=== PATIENT | female | born 1995 | race Caucasian/White ===

== ENCOUNTER 2016-07-12 22:41 | Inpatient (IN) | payer OTHER ==
[2016-07-12] MEDS ORDERED: Penicillin G Potassium IV* 5,000,000 UNITS in NS 0.9% 100 ML* 100 ML IVPB ONE (23:00)
[2016-07-12] MEDS ORDERED: Ibuprofen TAB* 600 MG ONE (23:24)
[2016-07-13] MEDS ORDERED: Acetaminophen TAB* 325 MG PO PRN (00:04)
[2016-07-13] MEDS ORDERED: Dibucaine 1% 28.35 GM TUBE PR PRN (00:04)
[2016-07-13] MEDS ORDERED: Witch Hazel PAD* JAR TOPICAL PRN (00:04)
[2016-07-13] MEDS ORDERED: Ibuprofen TAB* 600 MG PO PRN (00:04)
[2016-07-13] MEDS ORDERED: Penicillin G Potassium IV* 2,500,000 UNITS in NS 0.9% 100 ML* 100 ML IVPB SCH (03:30)
[2016-07-13] MEDS ORDERED: Lidocaine 1% INJ* 10 MG/ML 30 ML SDV ONE (04:08)
[2016-07-13] MEDS: Docusate CAP* 100 MG PO SCH ×3 (09:05→20:51)
[2016-07-14 07:15] LABS: Hematocrit 36 % (35-47); Mean Corpuscular HGB Conc 33 g/dl (31-36); Mean Corpuscular Hemoglobin 27 pg (27-31); Mean Corpuscular Volume 81 fL (80-97); Mean Platelet Volume 9 um3 (7.4-10.4); Red Blood Count 4.46 10^6/ul (4.0-5.4); Red Cell Distribution Width 14 % (10.5-15); White Blood Count 12.8 10^3/ul (3.5-10.8)
[2016-07-14] MEDS: Docusate CAP* 100 MG PO SCH ×3 (08:15→21:28)
[2016-07-14] MEDS: Ferrous Gluconate TAB* 324 MG TAB PO SCH ×2 (08:16→21:28)
[2016-07-15 07:52] VITALS: BP 104/76
[2016-07-15] MEDS: Docusate CAP* 100 MG PO SCH (09:04)
[2016-07-15] MEDS: Ferrous Gluconate TAB* 324 MG TAB PO SCH (09:05)
== END 2016-07-15 10:20 | disposition home or self-care (01) | DRG 560 ==
LOC: MCHOBOUT 22:41 → MCHOB 22:56
PROVIDERS: ADMIT Nurse Practitioner; ATTEND Nurse Practitioner
PROC: 10E0XZZ Delivery of Products of Conception, External Approach (ICD-10-PCS; principal; 2016-07-12)
PROC: 4A1HXCZ Monitoring of Products of Conception, Cardiac Rate, External Approach (ICD-10-PCS; 2016-07-12)
DX: O99.824 Streptococcus B carrier state complicating childbirth (principal); O62.3 Precipitate labor; Z3A.39 39 weeks gestation of pregnancy; Z37.0 Single live birth
CPT/HCPCS: 36415; 85025; A9270-GY; J2540

== ENCOUNTER 2018-02-23 07:57 | Inpatient (IN) | payer OTHER ==
--- NOTE | 2018-02-23 08:32 | HP ---
General Information - General Information Maternal Age: 22 Grav: 3 Para: 2 SAB: 0 IEA: 0 Estimated Due Date: 03/02/18 Determined By: LMP Maternal Blood Type and Rh: A Positive - Results this Serology/RPR Result: Non-Reactive Rubella Result: Immune HBsAg Result: Negative HIV Result: Negative GBS Culture Result: Negative Past Medical History Delivery History: Hx Uncomplicated Vaginal Delivery Pertinent Past Medical History: Non-Contributory Past Surgical History Comment: Tonsillectomy with Adenoidectomy Pertinent Family History: See Records Family History Comment: Mother with cervical Ca Brother with congenital heart defect (VSD, narrowing of aorta) - Antepartal Records Antepartal Records: Reviewed, Uncomplicated Review of Systems Constitutional: Comfortable CV Complaint: No Respiratory: Shortness of Breath: No Gastrointestinal: Nausea Genitourinary: No Leaking Fluid Musculoskeletal: Back Pain Neurological: Headache Movement: Normal Exam Allergies/Adverse Reactions: Allergies No Known Allergies Allergy (Verified 06/25/16 04:33) - Measurements Height: 5 ft 7 in Weight: 183 lb Weight in lbs: [phone] Body Mass Index (BMI): 28.6 Pre- Weight: 168 lb Weight Gained This : 15 lbs and 0 ozs - Exam Breast: - - soft, no masses Extremities: No Edema Heart: Normal Rhythm/Heart Sounds HEENT: No Significant Findings Lungs: Clear Bilaterally Reflexes: DTR 2+ Thyroid: No Thyromegaly - Ultrasound/Biophysical Profile Ultrasound Status: Not Done Targeted Exam Findings See L&D Outpatient Visit Provider Note for Findings: N/A Estimated Weight: 7.5 lbs Cervical Exam: 3cm Effacement: 70% Station: -1 Presenting Part: Vertex Membrane Status: Intact EFM Findings - External Monitor Findings Baseline Heart Rate: 150 External Monitor Findings: Accelerations Present, No Pattern of Variable or Late Decelerations, Variability Moderate External Monitor Findings Comment: category 1 Contractions: None Assessment/Plan - Assessment at 39 wks for elective induction - Plan Plan: Induction - will start pitocin - Date/Time of Admission Date of Admission: 02/23/18 Time of Admission: 08:20
[2018-02-23] MEDS ORDERED: Oxytocin in LR* 20 UNITS/1,000 ML BAG IVPB ONE (08:42)
[2018-02-23] MEDS ORDERED: Oxytocin in LR* 20 UNITS/1,000 ML BAG IVPB SCH ×2 (09:00→15:00)
[2018-02-23 09:04] LABS: ABS Basophils 0.1 10^3/ul (0-0.2); ABS Eosinophils 0.1 10^3/ul (0-0.6); ABS Lymphocytes 2.3 10^3/ul (1.0-4.8); ABS Neutrophils 8.8 10^3/ul (1.5-7.7); ABS Nucleated RBC 0 10^3/ul; Eosinophil % 0.9 % (0-6); Hematocrit 39 % (35-47); Hemoglobin 13.1 g/dl (12.0-16.0); Lymphocyte % 18.4 % (25-47); Mean Corpuscular HGB Conc 34 g/dl (31-36); Mean Corpuscular Hemoglobin 28 pg (27-31); Mean Corpuscular Volume 83 fL (80-97); Mean Platelet Volume 9.4 um3 (7.4-10.4); Nucleated Red Blood Cells % 0.1; Platelet Count 187 10^3/ul (150-450); Red Blood Count 4.69 10^6/ul (4.00-5.40); Red Cell Distribution Width 14 % (10.5-15); White Blood Count 12.2 10^3/ul (3.5-10.8)
[2018-02-23] MEDS ORDERED: OBEPIDURAL* 250 ML EPIDURAL ONE (10:54)
[2018-02-23] MEDS ORDERED: Phenylephrine IV* 40 MCG/ML 10 ML SYRINGE IV PUSH PRN ×2 (12:09)
[2018-02-23] MEDS ORDERED: EPHEDrine (Pressors)* 50 MG/ML VIAL IV PUSH PRN ×2 (12:09)
[2018-02-23] MEDS ORDERED: Sodium Citrate/Citric Acid* 15 ML UDC PO PRN (12:09)
[2018-02-23] MEDS ORDERED: Famotidine TAB* 20 MG PO PRN (12:09)
[2018-02-23] MEDS ORDERED: OBEPIDURAL* 250 ML EPIDURAL SCH (13:00)
[2018-02-23] MEDS ORDERED: Glycerin ADULT SUPP PR PRN (14:31)
[2018-02-23] MEDS ORDERED: Acetaminophen TAB* 325 MG PO PRN (14:31)
[2018-02-23] MEDS ORDERED: Dibucaine 1% 28.35 GM TUBE PR PRN (14:31)
[2018-02-23] MEDS ORDERED: Ibuprofen TAB* 600 MG PO PRN (14:31)
[2018-02-23] MEDS ORDERED: Witch Hazel PAD* JAR TOPICAL PRN (14:31)
[2018-02-23] MEDS ORDERED: Phytonadione NEONATE INJ* 1 MG/0.5 ML AMP ONE (14:44)
[2018-02-23] MEDS ORDERED: Hepatitis B Vac PF(ENGERIX-B)* 10 MCG/0.5 ML ML SYRINGE - PEDIATRIC ONE (14:45)
[2018-02-23] MEDS ORDERED: Erythromycin OPTH OINT* APPLIC OINT ONE (14:45)
--- NOTE | 2018-02-23 15:46 | PROCNOTE ---
[facility] OB: Delivery Note - Delivery A Date of : 02/23/18 Time of : 13:51 [place] Weight at : 7 lb 4 oz Score 1 Minute: 8 Score 5 Minutes: 9 Gestational Age in Weeks and Days at Delivery: 39 Weeks and 0 Days Delivery Method: Spontaneous Vaginal Labor: Induced - elective Did Patient attempt ?: N/A, No Previous Amniotic Fluid: Clear Anesthesia/Analgesia: CEI for Labor Delivered By: Chloe Porter - Nursery Level of Nursery: Regular/Bedside - Perineum Perineal Injury: None/Intact - Events Delivery Events of Note: Pitocin During Labor - Additional Delivery Notes Additional Delivery Notes: SVB LMC, OA, over intact perineum. CAN x 1, delivered through loop. [place] with stimulation, vigorous cry. Placenta [place]. FF with massage. Iv with pitocin running. EBL 200 cc. Mother and baby in good condition.
[2018-02-23] MEDS: Docusate CAP* 100 MG PO SCH (21:30)
[2018-02-24 07:25] LABS: Hematocrit 38 % (35-47); Hemoglobin 12.8 g/dl (12.0-16.0); Mean Corpuscular HGB Conc 34 g/dl (31-36); Mean Corpuscular Hemoglobin 28 pg (27-31); Mean Corpuscular Volume 83 fL (80-97); Mean Platelet Volume 9.6 um3 (7.4-10.4); Platelet Count 174 10^3/ul (150-450); Red Blood Count 4.54 10^6/ul (4.00-5.40); Red Cell Distribution Width 14 % (10.5-15); White Blood Count 14.1 10^3/ul (3.5-10.8)
[2018-02-24] MEDS ORDERED: Ferrous Gluconate TAB* 324 MG TAB PO SCH (09:00)
[2018-02-24] MEDS: Docusate CAP* 100 MG PO SCH ×2 (09:24→14:01)
[2018-02-24 12:28] VITALS: BP 100/52
== END 2018-02-24 16:40 | disposition home or self-care (01) | DRG 560 ==
LOC: MCHOBOUT 07:57 → MCHOB 08:27
PROVIDERS: ADMIT Midwife; ATTEND Midwife
PROC: 3E033VJ Introduction of Other Hormone into Peripheral Vein, Percutaneous Approach (ICD-10-PCS; principal; 2018-02-23)
PROC: 4A1HXCZ Monitoring of Products of Conception, Cardiac Rate, External Approach (ICD-10-PCS; 2018-02-23)
PROC: 10907ZC Drainage of Amniotic Fluid, Therapeutic from Products of Conception, Via Natural or Artificial Opening (ICD-10-PCS; 2018-02-23)
PROC: 10E0XZZ Delivery of Products of Conception, External Approach (ICD-10-PCS; 2018-02-23)
DX: O69.81X0 Labor and delivery complicated by cord around neck, without compression, not applicable or unspecified (principal); O99.334 Smoking (tobacco) complicating childbirth; F17.200 Nicotine dependence, unspecified, uncomplicated; Z3A.39 39 weeks gestation of pregnancy; Z37.0 Single live birth
CPT/HCPCS: 36415; 85025; 85027; 86850; 86900; 86901; 90744; A9270-GY; J3430

== ENCOUNTER 2018-08-01 14:54 | Emergency (ER) | payer BC, OTHER ==
[2018-08-01 15:30] VITALS: BP 107/69
--- NOTE | 2018-08-01 15:38 | UC ---
UC General HPI - HPI Summary HPI Summary: pt is c/o both ears being plugged and having pressure plus will crackle on occasion for 1 month. no injury or drainage. no fever. no uri. - History of Current Complaint Chief Complaint: UCEar Stated Complaint: BILATERAL EAR CONCERN Time Seen by Provider: 08/01/18 15:25 Hx Obtained From: Patient Hx Last Menstrual Period: HAS NOT HAD A PERIOD SINCE FEBRUARY 2018, AFTER GIVING Pain Intensity: 7 Associated Signs & Symptoms: Negative: Fever, Headache - Allergy/Home Medications Allergies/Adverse Reactions: Allergies Allergy/AdvReac Type Severity Reaction Status Date / Time No Known Allergies Allergy Verified 08/01/18 15:22 Home Medications: Home Medications Oral Contraceptive 1 tab PO DAILY 08/01/18 [History] PMH/Surg Hx/FS Hx/Imm Hx Previously Healthy: Yes - Surgical History Surgical History: Yes Surgery Procedure, Year, and Place: T & A - Family History Known Family History: Positive: Non-Contributory - Social History Alcohol Use: None Substance Use Type: None Smoking Status (MU): Light Every Day Tobacco Smoker Type: Cigarettes Amount Used/How Often: 2 per day Length of Time of Smoking/Using Tobacco: years Have You Smoked in the Last Year: Yes Household Exposure Type: Cigarettes - Immunization History Most Recent Influenza Vaccination: Unknown Most Recent Tetanus Shot: 04/28/16 Most Recent Pneumonia Vaccination: none Review of Systems All Other Systems Reviewed And Are Negative: Yes Constitutional: Positive: Negative Skin: Positive: Negative Eyes: Positive: Negative ENT: Negative: Sore Throat, Nasal Discharge, Sinus Congestion, Sinus Pain/ Tenderness Respiratory: Positive: Negative Cardiovascular: Positive: Negative Gastrointestinal: Positive: Negative Genitourinary: Positive: Negative Motor: Positive: Negative Neurovascular: Positive: Negative Musculoskeletal: Positive: Negative Neurological: Positive: Negative Psychological: Positive: Negative Physical Exam Triage Information Reviewed: Yes Appearance: Well-Appearing Vital Signs: Initial Vital Signs Temp 97.8 F 08/01/18 15:23 Pulse 93 08/01/18 15:23 Resp 16 08/01/18 15:23 BP 107/69 08/01/18 15:23 Pulse Ox 99 08/01/18 15:23 Vital Signs Reviewed: Yes Eyes: Positive: Conjunctiva Clear ENT: Positive: Pharynx normal, Nasal congestion, Nasal drainage, TMs normal, Other - Canals clear, No auricular adenopathy or mastoid tenderness. Neck: Positive: Supple, Nontender, No Lymphadenopathy Respiratory: Positive: Lungs clear, Normal breath sounds Cardiovascular: Positive: RRR, No Murmur Abdomen Description: Positive: Nontender, No Organomegaly, Soft Bowel Sounds: Positive: Present Musculoskeletal: Positive: ROM Intact Neurological: Positive: Alert Psychological: Positive: Age Appropriate Behavior Skin Exam: Normal Skin: Negative: Rashes Course/Dx - Diagnoses Provider Diagnosis: Eustachian tube dysfunction Discharge - Sign-Out/Discharge Documenting (check all that apply): Patient Departure All imaging exams completed and their final reports reviewed: No Studies - Discharge Plan Condition: Stable Disposition: HOME Patient Education Materials: Earache (ED) Referrals: Felipe Lovell MD [Medical Doctor] - 7 Days Additional Instructions: START FLONASE NASAL STEROID AND A DECONGESTANT ROUTINELY PER LABELS. - Billing Disposition and Condition Condition: STABLE Disposition: Home
== END 2018-08-01 15:46 | disposition home or self-care (01) ==
LOC: UCCORT 14:54
DX: H69.83 Other specified disorders of Eustachian tube, bilateral (principal); F17.210 Nicotine dependence, cigarettes, uncomplicated; J02.9 Acute pharyngitis, unspecified; R09.89 Other specified symptoms and signs involving the circulatory and respiratory systems; R09.81 Nasal congestion
CPT/HCPCS: 99211; G0463